=== PATIENT | female | born 1995 | race Caucasian/White ===

== ENCOUNTER 2017-01-18 03:18 | Emergency (ER) | payer SELFPAY ==
[~2017-01-18] VITALS: Ht 162.6 cm; Wt 89.0 kg
[2017-01-18 05:21] VITALS: BP 114/62
== END 2017-01-18 06:45 | disposition left against medical advice (07) ==
LOC: ER 03:18
DX: O26.891 Other specified pregnancy related conditions, first trimester (principal); N64.4 Mastodynia; M54.89 Other dorsalgia; Z3A.01 Less than 8 weeks gestation of pregnancy; Z53.21 Procedure and treatment not carried out due to patient leaving prior to being seen by health care provider
CPT/HCPCS: 81025